=== PATIENT | female | born 1935 | race Caucasian/White ===

== ENCOUNTER → 2017-06-22 | Outpatient (CLI) | payer OTHER ==
[~2017-06-22] MED LIST: ACET325 PO; ALEN70; ASPI81CH; ATEN50 PO; ATOR40TA PO; CHOL10002; CO Q-10 100 MG1 EACH; CYCL0.05OP BOTHEYES; DAILY MULTIPLE1 EACH; FISH1000; GLUC500; Glucophage1000 MG; LISI20 PO; PSYL5.85P; ROSU10TA
== END | disposition home or self-care (01) ==
LOC: LAB SHORT 11:06 → PLD 11:06
DX: D48.5 Neoplasm of uncertain behavior of skin (principal)
CPT/HCPCS: 88305

== ENCOUNTER → 2018-01-15 | Outpatient (CLI) | payer OTHER | END | disposition home or self-care (01) | LOC: LAB SHORT 07:36 → PLD 07:36 | DX: D48.5 Neoplasm of uncertain behavior of skin (principal) | CPT/HCPCS: 88305 ==

== ENCOUNTER 2018-11-19 09:49 | Day surgery (SDC) | payer OTHER ==
[~2018-11-19] VITALS: Ht 190.5 cm; Wt 75.0 kg
[~2018-11-19 09:49] MED LIST changes: +Allergy Relief10 M1 PO; +Artificial Tea1 EACH BOTHEYES; +ELIQUIS5 MG PO; -Glucophage1000 MG; +Glucophage1000 MG PO; +MAGOXI400 PO; +METO100ER PO; +Pacerone100 MG PO; -ROSU10TA; +ROSU10TA PO; +[UNRECOGNIZED DRUG - CODE] PO
--- NOTE | 2018-11-19 11:50 | NUR ---
EKG COMPLETED, Pt ambulated to brp unable to void. Pt stable vss wnl. Discharge instructions reviewed with pt and daughter. Pt verbalized understanding. Iv removed cannula intact. Taking po fluids.
== END 2018-11-19 22:54 | disposition home or self-care (01) ==
LOC: MHTC 09:49
DX: I48.4 Atypical atrial flutter (principal); I10 Essential (primary) hypertension; E11.9 Type 2 diabetes mellitus without complications; E78.5 Hyperlipidemia, unspecified; Z79.899 Other long term (current) drug therapy; Z79.84 Long term (current) use of oral hypoglycemic drugs; Z79.01 Long term (current) use of anticoagulants; Z87.891 Personal history of nicotine dependence
CPT/HCPCS: 82947; 92961; 93005; 93010; J2704; J7120

== ENCOUNTER 2020-07-03 07:02 | Day surgery (SDC) | payer OTHER ==
[~2020-07-03] VITALS: Ht 162.6 cm; Wt 54.0 kg
[~2020-07-03 07:02] MED LIST changes: -Glucophage1000 MG PO; +METF500 PO; -METO100ER PO; +METO25ER PO; +SPIR50 PO; +TORSE20 PO
[2020-07-03] MEDS ORDERED: GLUCHON PO (07:32)
[2020-07-03] MEDS ORDERED: METAMUCIL POWD575 GM PO (07:33)
--- NOTE | 2020-07-03 10:14 | NUR ---
TO RECOVERY ROOM VIA RECLINER. AWAKE AND ALERT. DRESSING DRY AND INTACT.
--- NOTE | 2020-07-03 10:42 | NUR ---
DRESSING FOR DISCHARGE. LEFT UPPER CHEST SURGICAL DRESSING WITH SCAN PROVODINE ORTHERWISE DRY AND INTACT DISCHARGE INSTRUCTIONS GIVEN WITH VERBAL AND WRITTEN UNDERSTANDING.
--- NOTE | 2020-07-03 10:52 | NUR ---
DISCHARGED HOME VIA WHEELCHAIR. DAUGHTER Jessee PATTERSON. IV REMOVED INTACT 2X2,COBAN AND MANUAL PRESSURE APPLIED.
[2020-11-27] MEDS ORDERED: OMEGA-3 + D SO1 EACH PO (11:17)
== END 2020-07-03 11:00 | disposition home or self-care (01) ==
LOC: MHTC 07:02
DX: Z45.018 Encounter for adjustment and management of other part of cardiac pacemaker (principal); I42.2 Other hypertrophic cardiomyopathy; I48.92 Unspecified atrial flutter; I10 Essential (primary) hypertension; E78.5 Hyperlipidemia, unspecified; E11.9 Type 2 diabetes mellitus without complications; Z79.84 Long term (current) use of oral hypoglycemic drugs; Z95.810 Presence of automatic (implantable) cardiac defibrillator; Z79.01 Long term (current) use of anticoagulants
CPT/HCPCS: 33263; 99152; 99153; C1721; C1781; J0690; J1644; J2250; J3010; J7040

== ENCOUNTER 2020-11-30 06:34 | Day surgery (SDC) | payer OTHER ==
[~2020-11-30] VITALS: Ht 162.6 cm; Wt 53.0 kg
[~2020-11-30 06:34] MED LIST changes: +GLUCHON PO; +METAMUCIL POWD575 GM PO; +OMEGA-3 + D SO1 EACH PO
[2020-11-30 07:42] LABS: Bun/Creatinine Ratio 23.5 (12.0-20.0); Calcium, Blood 10.8 mg/dL (8.5-10.1); Creatinine, Blood 1.02 mg/dL (0.40-1.00); Potassium, Blood 3.5 mmol/L (3.5-5.5)
--- NOTE | 2020-11-30 08:00 | NUR ---
AMIODARONE 150MG IVP GIVEN PER DR SHELLEY.
--- NOTE | 2020-11-30 08:25 | NUR ---
PT AWAKE AND VERBALIZING WELL. PT TAKING PO FLUIDS /S DIFFICULTY.
--- NOTE | 2020-11-30 08:46 | NUR ---
PT VERBALIZED UNDERSTANDING OF WRITTEN AND VERBAL D/C INST. IV REMOVED. PT TAKEN OUT OF THE HRT CENTER VIA W/C.
== END 2020-11-30 09:00 | disposition home or self-care (01) ==
LOC: MHTC 06:34
PROVIDERS: Internal Medicine Cardiovascular Disease
DX: I48.91 Unspecified atrial fibrillation (principal)
CPT/HCPCS: 80048; 92960; J0282; J2370; J2704; J7030

== ENCOUNTER 2020-12-23 11:32 | Observation (INO) | payer OTHER ==
[~2020-12-23] VITALS: Ht 162.6 cm; Wt 50.5 kg
[2020-12-23] MEDS ORDERED: GLUC500 PO (11:53)
[2020-12-23] MEDS ORDERED: CENTRUM SILVER1 EAC2 PO (11:55)
[2020-12-23] MEDS ORDERED: UBID10 PO (11:56)
--- NOTE | 2020-12-23 18:51 | NUR ---
ADMISSION SUMMARY REPORT TAKEN FROM JONAS FLOWER IN ED. PT ARRIVED TO UNIT @ APPROX 1820 VIA WHEELCHAIR. PT ABLE TO AMBULATE TO BED c SBA. PT STATES SHE BECOMES SOB AND UNSTEADY c FAR DISTANCES. BED ALARM ON FOR ENSURED SAFETY. EDUCATED PT ON HOW TO USE CALL SYSTEM. FLUIDS STARTED AND TELE PLACED ON PT. PER CADD TECHNICIAN PT RUNNING SR c PVC IN 70'S. WILL REPORT TO ONCOMING JONAS.
[2020-12-23] MEDS ORDERED: MELATONIN5 M1 PO (21:03)
[2020-12-24 05:16] LABS: BASOPHILS ABSOLUTE AUTO 0.02 K/mm3 (0.00-0.23); BASOPHILS PERCENT AUTO 0 % (0-2); EOSINOPHILS ABSOLUTE AUTO 0.04 K/mm3 (0.00-0.68); EOSINOPHILS PERCENT AUTO 1 % (0-6); Hematocrit 26.2 % (33.0-51.0); Hemoglobin 8.2 g/dL (11.5-16.0); IMMATURE GRAN ABSOLUTE AUTO 0.01 K/mm3 (0.00-0.10); IMMATURE GRAN PERCENT AUTO 0 % (0-1); LYMPHOCYTES ABSOLUTE AUTO 0.47 K/mm3 (0.84-5.20); LYMPHOCYTES PERCENT AUTO 8 % (21-46); MONOCYTES ABSOLUTE AUTO 0.26 K/mm3 (0.16-1.47); MONOCYTES PERCENT AUTO 4 % (4-13); Mean Corpuscular HGB 26.5 pg (26.0-34.0); Mean Corpuscular HGB Conc 31.3 g/dL (31.5-36.5); Mean Corpuscular Volume 85 fL (80-100); NEUTROPHILS ABSOLUTE AUTO 5.48 K/mm3 (1.96-9.15); NEUTROPHILS PERCENT AUTO 87 % (41-73); Platelet Count 161 K/mm3 (150-400); RDW Coefficient Variation 18.5 % (11.7-14.2); White Blood Cell Count 6.28 K/mm3 (4.00-11.30)
[2020-12-24 05:39] LABS: Albumin/Globulin Ratio 1.1 (0.8-1.8); Bilirubin, Total 0.5 mg/dL (0.1-1.0); Creatinine, Blood 1.71 mg/dL (0.40-1.00); Globulin, Blood 2.8 g/dL (2.2-4.0); Total Protein, Blood 5.8 g/dL (6.4-8.2)
--- NOTE | 2020-12-24 05:57 | NUR ---
SHIFT SUMMARY PATIENT ALERT AND ORIENTED. HAD NO COMPLAINTS OF PAIN OR SHORTNESS OF BREATH. NO ACUTE ISSUES NOTED OVERNIGHT. IV PATENT AND INFUSING. BED IN LOWEST POSITION WITH WHEELS LOCKED. CALL LIGHT WITHIN REACH. REPORT GIVEN TO ONCOMING RN.
--- NOTE | 2020-12-24 13:41 | NUR ---
Update 12/24/20: Discussed discharge planning and care coordination with pt. as she is likely to discharge within the next 24-48 hours if GFR improves. Patient's daughter will be providing transportation and picking up her medication at time of discharge. Pt. does feel that she is unsteady at times on her feet. We discussed the benefit of a walker with a seat. Pt. agreed that would be a very good idea as she needs to stop and rest often. We will order walker from [facility] to be delivered to her home. Pt. scheduled for a hospital F/U on 12/31/20 at 11 am.
--- NOTE | 2020-12-24 15:46 | NUR ---
Spoke with Dr Ruiz prior to Pt visit and discussed case. Pt may benefit from completing a POLST and advanced care planning. Pt resting in bed upon arrival. Pt is A&OX4 and denies pain at this time. Engaged in discussion regading considering completing a POLST that aligns with her wishes to DNR. Pt is agreeable. Educated on life sustaining measures including risk factors and implications of CPR. Educated on each option to consider. Per Pt's request, assisted with completing POLST. Pt's wishes on POLST is DNR and Limited Treatment. Pt signs POLST. Engaged in therapeutic discussion regarding advanced care planning. Educated on disease process including trajectory of disease. Discussed the importance of having routine conversation with PCP and developing plans as disease progresses. Discussed at somepoint in the future hospice may become an option for Pt and the importance of reflecting on her goals and values. Offered therapeutic listening and answered questions. Pt expresses appreciation of visit and reports no other concerns. Spoke with Primary RN Valerie and discussed case. Palliative Care will obtain copy of POLST for medical records upon MD signature.
--- NOTE | 2020-12-24 17:35 | NUR ---
SHIFT SUMMARY NO ACUTE CHANGES, A&O, COOPERATIVE c CARE, DENIES ANY DISTRESS T/O SHIFT. CODE STATUS CHANGED TO DNR PER PT REQUEST, VERBAL ORDERS GIVEN BY LEELA AND KEVIN IN ROOM WAITING MD SIGNATURE. GOOD ORAL INTAKE, ABULATING WELL. POSSIBLE DISCHARGE TOMORROW PENDING KIDNEY FUNCTION. PT IS CURRENTLY RESTING IN BED, VISITING WITH DAUGHTER. CALL LIGHT WITHIN REACH, CALLS APPROPRIATELY.
[2020-12-25 05:05] LABS: BASOPHILS ABSOLUTE AUTO 0.02 K/mm3 (0.00-0.23); BASOPHILS PERCENT AUTO 1 % (0-2); EOSINOPHILS ABSOLUTE AUTO 0.06 K/mm3 (0.00-0.68); EOSINOPHILS PERCENT AUTO 2 % (0-6); Hematocrit 25.9 % (33.0-51.0); Hemoglobin 8.1 g/dL (11.5-16.0); IMMATURE GRAN ABSOLUTE AUTO 0.01 K/mm3 (0.00-0.10); IMMATURE GRAN PERCENT AUTO 0 % (0-1); LYMPHOCYTES PERCENT AUTO 17 % (21-46); MONOCYTES ABSOLUTE AUTO 0.28 K/mm3 (0.16-1.47); MONOCYTES PERCENT AUTO 8 % (4-13); Mean Corpuscular HGB 26.6 pg (26.0-34.0); Mean Corpuscular HGB Conc 31.3 g/dL (31.5-36.5); Mean Corpuscular Volume 85 fL (80-100); Mean Platelet Volume 11.9 fL (9.1-12.4); NEUTROPHILS ABSOLUTE AUTO 2.61 K/mm3 (1.96-9.15); NEUTROPHILS PERCENT AUTO 73 % (41-73); Platelet Count 149 K/mm3 (150-400); RDW Coefficient Variation 18.1 % (11.7-14.2); RDW Standard Deviation 56.2 fL (35.1-46.3); Red Blood Cell Count 3.04 M/mm3 (3.80-5.20); White Blood Cell Count 3.58 K/mm3 (4.00-11.30)
[2020-12-25 05:16] LABS: Bun/Creatinine Ratio 21.8 (12.0-20.0); Calcium, Blood 9.3 mg/dL (8.5-10.1); Creatinine, Blood 1.24 mg/dL (0.40-1.00)
--- NOTE | 2020-12-25 06:48 | NUR ---
SHIFT SUMMARY PATIENT ALERT AND ORIENTED. HAD NO COMPLAINTS OF PAIN OR SHORTNESS OF BREATH. SLEPT WELL OVERNIGHT. IS EAGER TO GO HOME. NO ACUTE ISSUES NOTED. IV PATENT AND INFUSING. BED IN LOWEST POSITION WITH WHEELS LOCKED. CALL LIGHT WITHIN REACH. REPORT GIVEN TO ONCOMING RN.
--- NOTE | 2020-12-25 13:37 | NUR ---
PT IS A&O, VERY PLEASANT AND CO-OP. WANTING TO GO HOME TODAY. [facility] IN AND TO [facility]. DR CLANCY IN TO SEE PT AND DISCUSS D/C PLANS AND F/U APPOINTMENTS. PT ASSISTED WITH PHONE TO CALL FOR [facility]. PT'S SON INFORMED OF D/C WELL. D/C MED EXPLAINED TO PT AND CHANGES MADE. PT VERBALIZED UNDERSTANDING. PT ASSISTED OUT VIA W/C. VERY GRATEFUL FOR CARE.
--- NOTE | 2020-12-25 14:22 | NUR ---
Update 12/25/20: Per chart review with Dr. Gonzalez, pt. appropriate for discharge. Walker with seat ordered for patient and delivered to home. Nurse aware that pt. will be discharging. Daughter will be transporting pt. home and worm picker prescriptions. See additional notes for discharge details.
== END 2020-12-25 12:25 | disposition home or self-care (01) ==
LOC: ER 11:32 → ERHOLD 11:33 → MEDS 18:23 → ENPENDDIS 12-25 11:35 → MEDS 12-25 12:25
PROVIDERS: ADMIT Family Medicine
DX: N17.9 Acute kidney failure, unspecified (principal); I12.9 Hypertensive chronic kidney disease with stage 1 through stage 4 chronic kidney disease, or unspecified chronic kidney disease; N18.9 Chronic kidney disease, unspecified; E11.22 Type 2 diabetes mellitus with diabetic chronic kidney disease; I42.1 Obstructive hypertrophic cardiomyopathy; R77.8 Other specified abnormalities of plasma proteins; D64.9 Anemia, unspecified; I48.0 Paroxysmal atrial fibrillation; Z95.810 Presence of automatic (implantable) cardiac defibrillator; Z87.891 Personal history of nicotine dependence; Z79.84 Long term (current) use of oral hypoglycemic drugs; Z79.01 Long term (current) use of anticoagulants; Z66 Do not resuscitate
CPT/HCPCS: 36415; 71045; 80048; 80053; 82947; 83880; 84484; 85025; 93005; 93010; 94760; A9270; J7030

== ENCOUNTER → 2022-05-26 | Outpatient (CLI) | payer OTHER ==
[~2022-05-26] MED LIST changes: +CENTRUM SILVER1 EAC2 PO; +GLUC500 PO; +MELATONIN5 M1 PO; +UBID10 PO
== END | disposition home or self-care (01) ==
LOC: LAB 09:15 → LAB SHORT 09:15
DX: E21.3 Hyperparathyroidism, unspecified (principal)
CPT/HCPCS: 82310; 82570

== ENCOUNTER 2023-07-25 06:04 | Day surgery (SDC) | payer OTHER ==
[2023-07-25] VITALS (8 sets, daily range): BP systolic 100–138; BP diastolic 70–93
[2023-07-25] MEDS ORDERED: FERSU300 PO (06:25)
[2023-07-25] MEDS ORDERED: FARXIGA10 MG PO (06:26)
[2023-07-25] MEDS ORDERED: NS 1,000 ML IV ONE (06:37)
--- NOTE | 2023-07-25 07:20 | NUR ---
ASSUMED CARE FROM ANESTHESIA. PT AWAKE AND VERBALIZED WELL. ATRIAL PACED RYTHM 60BPM POST CARDIOVERSION.
--- NOTE | 2023-07-25 08:05 | NUR ---
PT AND DAUGHTER VERBALIZED UNDERSTANDING OF WRITTEN AND VERBAL D/C INST. ATRIAL PACED RYTHM ON D/C. IV REMOVED. PT TAKEN OUT OF THE HRT CENTER VIA W/C.
[2023-07-25] MEDS ORDERED: Propofol 10mg/ml 20 ml Vial (Procedural) IV ONE (12:59)
== END 2023-07-25 23:24 | disposition home or self-care (01) ==
LOC: MHTC 06:04 → ORSCMMR 06:06 → MHTC 23:24
DX: I48.0 Paroxysmal atrial fibrillation (principal); I35.0 Nonrheumatic aortic (valve) stenosis; I10 Essential (primary) hypertension; E78.5 Hyperlipidemia, unspecified; E11.9 Type 2 diabetes mellitus without complications
CPT/HCPCS: 92961; 93005; 93010; J2704; J7030